=== PATIENT | female | born 1990 | race Caucasian/White ===

== ENCOUNTER 2019-11-14 13:33 | Emergency (ER) | payer SELFPAY ==
--- NOTE | 2019-11-14 14:19 | ER ---
Nurse's Notes [facility] Name: Natalia Dawkins Age: 29 yrs Sex: Female : 1990 Arrival Date: 11/14/2019 Time: 13:35 Bed 17 Private MD: Diagnosis: Suicidal ideations;Major depressive disorder, recurrent-homeless, resoursless;Alcohol abuse with intoxication;Cocaine abuse Presentation: 11/13 13:39 Chief complaint: Patient states: "I have been out of my antidepressants for a week now. ca1 There are 7 of them. I have suicidal thoughts right now". Pt is crying in triage states, "haven't slept in a week, can't hold down anything down, I have been vomiting too". Coronavirus screen: Proceed with normal triage. Patient denies a cough. Patient denies shortness of breath or difficulty breathing. Patient denies measured and/or subjective temperature greater than 100.4F prior to today's visit. Patient denies travel on a cruise ship or to a country the [facility] currently lists as an affected area. Patient denies contact with known and/or suspected case of COVID-19. Ebola Screen: Patient negative for fever greater than or equal to 101.5 degrees Fahrenheit, and additional compatible Ebola Virus Disease symptoms Patient denies exposure to infectious person. Patient denies travel to an Ebola-affected area in the 21 days before illness onset. No symptoms or risks identified at this time. Initial Sepsis Screen: Does the patient meet any 2 criteria? No. Patient's initial sepsis screen is negative. Does the patient have a suspected source of infection? No. Patient's initial sepsis screen is negative. Risk Assessment: Do you want to hurt yourself or someone else? Patient reports desire/thoughts of hurting themselves or someone else. Provider notified. Onset of symptoms was November 14, 2019. 13:39 Method Of Arrival: Ambulatory ca1 13:39 Acuity: PILLO 2 ca1 OBSTETRIC ANAESTHETIST: 13:45 LMP 11/12/2019 ca1 Historical: - Allergies: 13:45 No Known Allergies; ca1 - PMHx: 13:45 Depression; Anxiety; ca1 - PSHx: 13:45 None; ca1 - Immunization history:: Adult Immunizations up to date. - Social history:: Smoking status: Patient reports the use of cigarette tobacco products, smokes one-half pack cigarettes per day. - Family history:: not pertinent. Screenin:23 Abuse screen: PT DOES NOT ANSWER QUESTIONS. Nutritional screening: No deficits noted. ls4 Tuberculosis screening: No symptoms or risk factors identified. Fall Risk None identified. Assessment: 14:02 General: Appears distressed, unkempt, Behavior is combative, restless, uncooperative, ls4 Reports LOST HER MEDICATIONS AND HAS NO WHERE TO LIVE. STATES SHE LEFT [facility] AGAINST THEIR ADVICE BECAUSE SHE STATES THEY TREATED HER LIKE SHE WAS IN RESIDENTIAL. PT STATES THEY WERE DISRESPECTFUL AND THEY DROPPED HER OFF AT [facility] WHO SHE SAID AT FIRST WAS NOT EXCEPTING NEW RESIDENTS AND THEN SHE STATED THEY ARE CLOSED. PT WAS UNABLE TO TELL US WHAT SUBSTANCE SHE WAS IN REHAB FOR. EVENTUALLY, SHE STATED ALCOHOL AND STUFF. PT THEN BEGAN SCREAMING AND CURSING AT THE TOP OF HER LUNGS TO DR GASTELUM WHO WAS ASSESSING HER NEEDS IN ORDER TO ARRANGE PROPER CARE. PT STATES SHE HAS NO FAMILY AND NO FRIENDS. PT STATES SHE IS WAITING FOR HOUSING IN [place]. PT ALSO STATES THAT SHE WAS GETTING HER MEDICATIONS FROM [facility]. Pain: Denies pain. Neuro: Level of Consciousness is awake, alert, obeys commands, Oriented to person, place, time, situation. Cardiovascular: Denies chest pain. Respiratory: Airway is patent Respiratory effort is even, unlabored, Respiratory pattern is regular. 19:00 Reassessment:. rv 19:00 General: Appears comfortable, Behavior is calm, cooperative. Pain: Denies pain. Neuro: rv Level of Consciousness is awake, alert, obeys commands, Oriented to person, place, time, situation. 20:09 Reassessment: IV ON LEFT AC INFILTRATED, DISCONTINUED. rv 11/14 04:15 Reassessment: Patient appears in no apparent distress at this time. Patient is alert, sg oriented x 3, equal unlabored respirations, skin warm/dry/pink. report received from CLARISSE Maki. 04:45 Reassessment: pt appears calm, quiet. Requesting medication for anxiety at this time, sg pt states "can feel it getting worse." notified, orders received for PO ativan, pt medicated see [facility]. continuing to wait for acceptance at a receiving facility at this time. 05:00 Reassessment: Patient appears in no apparent distress at this time. Patient is alert, sg oriented x 3, equal unlabored respirations, skin warm/dry/pink. 06:00 Reassessment: Patient appears in no apparent distress at this time. Patient and/or sg family updated on plan of care and expected duration. Pain level reassessed. Patient is alert, oriented x 3, equal unlabored respirations, skin warm/dry/pink. 07:04 General: Appears in no apparent distress. Pt. is resting with eyes closed, respirations rb1 even, unlabored. Sitter at the bedside.. 08:00 Reassessment: Patient appears in no apparent distress at this time. Patient and/or rb1 family updated on plan of care and expected duration. Pain level reassessed. Patient is alert, oriented x 3, equal unlabored respirations, skin warm/dry/pink. 08:50 General: Appears in no apparent distress. comfortable, Behavior is calm, cooperative, sv appropriate for age. Pain: Denies pain. Neuro: Level of Consciousness is awake, alert, obeys commands, Oriented to person, place, time, situation, Moves all extremities. Full function. Respiratory: Respiratory effort is even, unlabored, Respiratory pattern is regular, symmetrical. 09:22 Reassessment: Facetime done with [facility]. sv 10:01 Reassessment: Cele from [facility] recommends inpatient treatment at this time. Pt told sv her that she now has a plan, which would be to take a bunch of pills and kill herself. 11:00 Reassessment: Patient appears in no apparent distress at this time. No changes from sv previously documented assessment. Patient and/or family updated on plan of care and expected duration. Pain level reassessed. Patient is alert, oriented x 3, equal unlabored respirations, skin warm/dry/pink. 12:00 Reassessment: Patient appears in no apparent distress at this time. No changes from sv previously documented assessment. Patient and/or family updated on plan of care and expected duration. Pain level reassessed. Patient is alert, oriented x 3, equal unlabored respirations, skin warm/dry/pink. Pt given lunch tray. 13:00 Reassessment: Patient appears in no apparent distress at this time. No changes from sv previously documented assessment. Patient and/or family updated on plan of care and expected duration. Pain level reassessed. Patient is alert, oriented x 3, equal unlabored respirations, skin warm/dry/pink. 14:30 Reassessment: Patient appears in no apparent distress at this time. No changes from previously documented assessment. Patient and/or family updated on plan of care and expected duration. Pain level reassessed. Patient is alert, oriented x 3, equal unlabored respirations, skin warm/dry/pink. 16:00 Reassessment: Patient appears in no apparent distress at this time. No changes from previously documented assessment. Patient and/or family updated on plan of care and expected duration. Pain level reassessed. Patient is alert, oriented x 3, equal unlabored respirations, skin warm/dry/pink. 17:06 Reassessment: Patient appears in no apparent distress at this time. No changes from previously documented assessment. Patient and/or family updated on plan of care and expected duration. Pain level reassessed. Patient is alert, oriented x 3, equal unlabored respirations, skin warm/dry/pink. Pt given dinner tray. 19:08 General: Appears in no apparent distress. Behavior is calm, cooperative, appropriate wh for age. Pain: Denies pain. Neuro: Level of Consciousness is awake, alert, obeys commands, Oriented to person, place, time, situation, Appropriate for age. Cardiovascular: Capillary refill < 3 seconds. Respiratory: Airway is patent Respiratory effort is even, unlabored, Respiratory pattern is regular, symmetrical. GI: Abdomen is flat, non-distended. : No signs and/or symptoms were reported regarding the genitourinary system. EENT: No signs and/or symptoms were reported regarding the EENT system. Derm: Skin is intact, is healthy with good turgor, Skin is pink, warm \\T\\ dry. normal. Musculoskeletal: Circulation, motion, and sensation intact. 20:30 Reassessment: Patient appears in no apparent distress at this time. No changes from previously documented assessment. Patient and/or family updated on plan of care and expected duration. Pain level reassessed. Patient is alert, oriented x 3, equal unlabored respirations, skin warm/dry/pink. Sitter at bedside. 22:00 Reassessment: Patient appears in no apparent distress at this time. No changes from previously documented assessment. Patient and/or family updated on plan of care and expected duration. Pain level reassessed. Patient is alert, oriented x 3, equal unlabored respirations, skin warm/dry/pink. SItter at bedside. 23:30 Reassessment: Patient appears in no apparent distress at this time. No changes from previously documented assessment. Patient and/or family updated on plan of care and expected duration. Pain level reassessed. Patient is alert, oriented x 3, equal unlabored respirations, skin warm/dry/pink. Pt sleeping well no signs of distress noted. Sitter at bedside. 11/15 01:00 Reassessment: Patient appears in no apparent distress at this time. No changes from previously documented assessment. Patient and/or family updated on plan of care and expected duration. Pain level reassessed. Patient is alert, oriented x 3, equal unlabored respirations, skin warm/dry/pink. Pt sleeping well no signs of distress noted, sitter at bedside. 02:30 Reassessment: Patient appears in no apparent distress at this time. No changes from previously documented assessment. Patient and/or family updated on plan of care and expected duration. Pain level reassessed. Patient is alert, oriented x 3, equal unlabored respirations, skin warm/dry/pink. Pt sleeping well no signs of distress noted, sitter at bedside. 03:41 Reassessment: [facility] on the phone with for a DOC to DOC report, sg awaiting acceptance and a bed approval at this time, pt stated understanding. 05:00 Reassessment: Patient appears in no apparent distress at this time. No changes from previously documented assessment. Patient and/or family updated on plan of care and expected duration. Pain level reassessed. Patient is alert, oriented x 3, equal unlabored respirations, skin warm/dry/pink. report given to [facility]. 05:25 Reassessment: Pt belongings returned by Security. Psych: 11/13 14:02 Interventions: Removed personal items and placed in bag. Patient placed in hospital tw2 gown. Belonging list filled out. Suicide Risk Assessment: Sad Person Scale: Sex of patient: Female: Score 0 points. Age of patient: Score 1 point if patient 15-34. Depression: Score 1 point if signs of depression are present. Previous Attempt: Score 0 point if patient has not previously attempted suicide. Substance Abuse: Score 1 point if patient abuses alcohol or drugs. Rational Thinking: Score 1 point if patient is lacking rational thinking. Social Support: Score 1 point if social support is lacking and/or unavailable. Organized Plan: Score 0 if patient did not have an organized plan in place. Relationship: Score 1 point if patient is , , , or for a single male Chronic Sickness: Score 1 point if patient has illness, chronic, debilitating, or severe. TOTAL POINTS: If total points are 7-10, the proposed clinical action is to hospitalize or commit. Implement suicide precautions. 14:10 Subjective: Patient's mood is irritable. Objective: Patient is uncooperative, tw2 belligerent, defensive, irritable. Safety Checks: Personal items have been removed. Door is open. sitter remains with pt throughout shift. Patient uses cocaine. Commitment: Patient will be a voluntary commitment. Vital Signs: 13:39 BP 141 / 93; Pulse 106; Resp 19 S; Temp 98.6(TE); Pulse Ox 98% on R/A; Weight 99.79 kg ca1 (R); Height 5 ft. 1 in. (154.94 cm) (M); 19:00 BP 138 / 86; Pulse 91; Resp 18; Temp 98.5; Pulse Ox 99% on R/A; Pain 0/10; rv 11/14 04:15 BP 127 / 99 LA Sitting (auto/lg); Pulse 86 MON; Resp 16 S; Temp 98.2(TE); Pulse Ox 98% ds4 on R/A; Pain 0/10; 12:17 BP 118 / 80; Pulse 97; Resp 18; Pulse Ox 98% on R/A; tm3 17:07 BP 122 / 82; Pulse 92; Resp 16; Pulse Ox 99% ; sv 11/15 05:00 BP 103 / 83; Pulse 83; Resp 18; Temp 97.8; Pulse Ox 98% ; wh 11/13 13:39 Body Mass Index 41.57 (99.79 kg, 154.94 cm) ca1 ED Course: 11/13 13:35 Patient arrived in ED. ag5 13:44 Triage completed. ca1 13:45 Arm band placed on right wrist. ca1 13:48 Tony Gastelum MD is Attending Physician. darin 13:56 Lin Jalloh RN is Primary Nurse. ls4 14:23 Patient has correct armband on for positive identification. Placed in gown. Bed in low ls4 position. Call light in reach. Side rails up X 1. Valuables Locked in safe. See valuables checklist. PT ON SUICIDE PRECAUTIONS. BELONGINGS REMOVED. . Security at bedside. CHRISTA HARTMAN CALLED. PT LEFT ROOM AND WAS FOLLOWED BY SECURITY TO FAST TRACK ROOMS. NURSE [employer] TEACHER ARRIVED AND WAS ABLE TO BRING PT BACK TO ROOM. 14:55 Initial lab(s) drawn, by me, sent to lab. Inserted saline lock: 22 gauge in left lt1 antecubital area, using aseptic technique. 18:20 Diet: Patient given a regular meal tray. mh5 19:00 No apparent distress. Resting quietly. transfer approval from receiving facility. rv Patient requests food. Patient requests liquids. Patient requests rest room assistance. Safety Checks: The door is open or patient has been placed in a hallway bed/chair. There are no family/friend visitors at this time Sitter present at this time. 19:00 Noise minimized. Visitors limited. Lights dimmed. Warm blanket given. Pillow given. rv Diet tray given. 20:09 Inserted saline lock: 20 gauge in right antecubital area, using aseptic technique. rv 20:50 called [facility] was at capacity for psych beds. ar5 20:55 faxed pt. clinical's to [facility]. ar5 11/14 04:25 Primary Nurse role handed off by Lin Jalloh RN sg 04:25 Sebastian Valladares, RN is Primary Nurse. sg 04:40 PT given sandwich, potato chips, drink. ds4 07:00 Report given to CLARISSE DEL TORO. sg 08:08 Diet tray given. em1 08:34 contacted [facility] to have pt evaluated. bd 08:36 contacted [facility], talked to jasmina, pt still on wait list, discharges are bd not expected today. 08:49 faxed chart to [facility]. bd 08:50 Primary Nurse role handed off by Sebastian Valladares, CLARISSE sv 08:50 Soo Oneill, CLARISSE is Primary Nurse. sv 16:45 Diet tray given. em1 17:09 talked to Lenin at [facility], chart is still under review. bd 17:10 talked to Jasmina at [facility], pt is still on waiting list, still no discharges, none bd expected tonight. 17:11 contacted [facility], behavioral, and [facility], no beds at this time. bd 18:04 Primary Nurse role handed off by Soo Oneill RN 19:04 Merry Corbett is Primary Nurse. 11/15 01:05 [employer] given with chips and drink. ds4 05:21 No provider procedures requiring assistance completed. IV discontinued, intact, bleeding controlled, No redness/swelling at site. Administered Medications: 11/13 13:55 Drug: Ativan 1 mg Route: PO; tw2 21:56 Follow up: Response: No adverse reaction rv 15:22 Drug: NS 0.9% 1000 ml Route: IV; Rate: 1 bolus; Site: left antecubital; tw2 21:56 Follow up: IV Status: Completed infusion; IV Intake: 1000ml rv 15:23 Drug: Ativan 1 mg Route: IVP; Site: left antecubital; tw2 21:56 Follow up: Response: No adverse reaction rv 21:55 Drug: Ativan 1 mg Route: IVP; Site: right antecubital; 11/14 00:05 Follow up: Response: No adverse reaction; RASS: Light sedation (-2) rv 04:52 Drug: Ativan 1 mg Route: PO; sg 19:09 Follow up: Response: No adverse reaction; RASS: Alert and Calm (0) 22:25 Drug: Ativan 1 mg Route: PO; 11/15 05:21 Follow up: Response: No adverse reaction; RASS: Alert and Calm (0) Intake: 11/13 21:56 IV: 1000ml; Total: 1000ml. rv 11/14 12:00 PO: 200ml (Water); Total: 1200ml. sv 17:08 PO: 200ml (Water); Total: 1400ml. Outcome: 11/13 14:19 ER care complete, transfer ordered by . [facility] 11/15 05:22 Transferred by ground EMS to other acute care facility: [facility]. Transfer form completed. X-rays sent w/ patient. Note: report given to [facility] Condition: stable Instructed on the need for transfer. 05:26 Patient left the ED. Signatures: Sandra Ch bd Maledarin, Malik tm3 Soo Oneill RN RN Sebastian Valladares RN RN Tony Gastelum MD MD cha Martinez, Kory em1 Ramsey Mak ds4 Griselda Whitney, RN RN rb1 Marianela Martinez RN RN tw2 Amparo Dow [facility] Merry Corbett Vini Lam RN RN rv Lin Jalloh RN RN ls4 Benjy, Nithya [facility] Julia Young RN RN ca1 Gennaro, Oma ag5 Nagy, Claudia lt1 Corrections: (The following items were deleted from the chart) 11/13 13:46 13:39 Pulse 106bpm; Resp 19bpm; Spontaneous; Pulse Ox 98% RA; Temp 98.6F Temporal; ca1 99.79 kg Reported; Height 5 ft. 1 in. Measured; BMI: 41.5; ca1 21:55 20:50 called [facility]T was at capacity for psych beds [place] [id number] 21:55 20:55 faxed pt. clinical's to psych facilities \\T [place] [id number] 11/14 17:07 12:00 Reassessment: Patient appears in no apparent distress at this time. No changes sv from previously documented assessment. Patient and/or family updated on plan of care and expected duration. Pain level reassessed. Patient is alert, oriented x 3, equal unlabored respirations, skin warm/dry/pink. sv
--- NOTE | 2019-11-14 14:20 | EDPHYS ---
Physician Documentation [facility] Name: Natalia Dawkins Age: 29 yrs Sex: Female : 1990 Arrival Date: 11/14/2019 Time: 13:35 Bed 17 Private MD: ED Physician Tony Gastelum HPI: 11/13 14:10 This 29 yrs old Female presents to ER via Ambulatory with complaints of darin Suicidal Ideation, Needs Medication. 14:10 The patient presents to the emergency department with depression, a history of [facility] substance abuse, Type: alcohol and various drugs. Onset: The symptoms/episode began/occurred 1 week(s) ago. Past psychiatric history: Prior diagnosis: depression, Psychiatric medications include: many and not able to recall. Associated signs and symptoms: The patient has no apparent associated signs or symptoms. Severity of symptoms: At their worst the symptoms were mild moderate in the emergency department the symptoms are unchanged. The patient has experienced similar episodes in the past, multiple times. 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 - Social history:: Smoking status: Patient reports the use of cigarette tobacco products, smokes one-half pack cigarettes per day. - Family history:: not pertinent. ROS: 14:10 Constitutional: Negative for fever, chills, and weight loss, Eyes: Negative for injury, darin pain, redness, and discharge, ENT: Negative for injury, pain, and discharge, Neck: Negative for injury, pain, and swelling, Cardiovascular: Negative for chest pain, palpitations, and edema, Respiratory: Negative for shortness of breath, cough, wheezing, and pleuritic chest pain, Abdomen/GI: Negative for abdominal pain, nausea, vomiting, diarrhea, and constipation, Back: Negative for injury and pain, : Negative for injury, bleeding, discharge, and swelling, MS/Extremity: Negative for injury and deformity, Skin: Negative for injury, rash, and discoloration, Neuro: Negative for headache, weakness, numbness, tingling, and seizure, Allergy/Immunology: Negative for hives, rash, and allergies, Endocrine: Negative for neck swelling, polydipsia, polyuria, polyphagia, and marked weight changes, Hematologic/Lymphatic: Negative for swollen nodes, abnormal bleeding, and unusual bruising. 14:10 Psych: Positive for depression, suicidal ideation. Exam: 14:10 Constitutional: This is a well developed, well nourished patient who is awake, alert, darin and in no acute distress. Head/Face: Normocephalic, atraumatic. Eyes: Pupils equal round and reactive to light, extra-ocular motions intact. Lids and lashes normal. Conjunctiva and sclera are non-icteric and not injected. Cornea within normal limits. Periorbital areas with no swelling, redness, or edema. ENT: Nares patent. No nasal discharge, no septal abnormalities noted. Tympanic membranes are normal and external auditory canals are clear. Oropharynx with no redness, swelling, or masses, exudates, or evidence of obstruction, uvula midline. Mucous membranes moist. Neck: Trachea midline, no thyromegaly or masses palpated, and no cervical lymphadenopathy. Supple, full range of motion without nuchal rigidity, or vertebral point tenderness. No Meningismus. Chest/axilla: Normal chest wall appearance and motion. Nontender with no deformity. No lesions are appreciated. Cardiovascular: Regular rate and rhythm with a normal S1 and S2. No gallops, murmurs, or rubs. Normal PMI, no JVD. No pulse deficits. Respiratory: Lungs have equal breath sounds bilaterally, clear to auscultation and percussion. No rales, rhonchi or wheezes noted. No increased work of breathing, no retractions or nasal flaring. Abdomen/GI: Soft, non-tender, with normal bowel sounds. No distension or tympany. No guarding or rebound. No evidence of tenderness throughout. Back: No spinal tenderness. No costovertebral tenderness. Full range of motion. Skin: Warm, dry with normal turgor. Normal color with no rashes, no lesions, and no evidence of cellulitis. MS/ Extremity: Pulses equal, no cyanosis. Neurovascular intact. Full, normal range of motion. Neuro: Awake and alert, GCS 15, oriented to person, place, time, and situation. Cranial nerves II-XII grossly intact. Motor strength 5/5 in all extremities. Sensory grossly intact. Cerebellar exam normal. Normal gait. 14:10 Psych: Behavior/mood is aggressive, angry, Affect is laible. Oriented to person, place, time, Not oriented to person place, time, Patient has no thoughts/intents to harm self or others. Judgement / Insight is normal. Delusions/hallucinations are not present. 15:33 ECG was reviewed by the Attending Physician. darin Vital Signs: 13:39 BP 141 / 93; Pulse 106; Resp 19 S; Temp 98.6(TE); Pulse Ox 98% on R/A; Weight 99.79 kg ca1 (R); Height 5 ft. 1 in. (154.94 cm) (M); 19:00 BP 138 / 86; Pulse 91; Resp 18; Temp 98.5; Pulse Ox 99% on R/A; Pain 0/10; rv 11/14 04:15 BP 127 / 99 LA Sitting (auto/lg); Pulse 86 MON; Resp 16 S; Temp 98.2(TE); Pulse Ox 98% ds4 on R/A; Pain 0/10; 12:17 BP 118 / 80; Pulse 97; Resp 18; Pulse Ox 98% on R/A; tm3 17:07 BP 122 / 82; Pulse 92; Resp 16; Pulse Ox 99% ; sv 11/15 05:00 BP 103 / 83; Pulse 83; Resp 18; Temp 97.8; Pulse Ox 98% ; wh 11/13 13:39 Body Mass Index 41.57 (99.79 kg, 154.94 cm) ca1 MDM: 11/13 13:48 Patient medically screened. darin 14:16 Data reviewed: vital signs, nurses notes, lab test result(s), EKG, radiologic studies. darin 14:21 Differential diagnosis: drug withdrawal. acute psychotic break, depression, psychosis darin secondary to non-compliance. Data interpreted: monitor technician: rate is 106 beats/min, rhythm is normal sinus rhythm, Pulse oximetry: on room air is 98 %. Test interpretation: by ED physician or midlevel provider: ECG. Counseling: I had a detailed discussion with the patient and/or guardian regarding: the historical points, exam findings, and any diagnostic results supporting the discharge/admit diagnosis, lab results, the need to transfer to another facility. 11/14 03:33 ED course: Pt sleeping comfortably, no meds required, awaiting transfer. . rn 11/15 03:33 ED course: Pt accepted for transfer after doc-to-doc performed \T\ 0333.. rn 11/13 13:49 Order name: Acetaminophen; Complete Time: 16:20 [facility] 11/13 13:49 Order name: Basic Metabolic Panel; Complete Time: 16:20 [facility] 11/13 13:49 Order name: CBC with Diff; Complete Time: 16:20 [facility] 11/13 13:49 Order name: ETOH Level; Complete Time: 16:20 [facility] 11/13 13:49 Order name: Hepatic Function; Complete Time: 16:20 [facility] 11/13 13:49 Order name: PT-INR; Complete Time: 16:20 [facility] 11/13 13:49 Order name: Ptt, Activated; Complete Time: 16:20 [facility] 11/13 13:49 Order name: Salicylate; Complete Time: 16:20 [facility] 11/13 13:49 Order name: Urine Drug Screen; Complete Time: 16:20 [facility] 11/13 15:10 Order name: Urine Dipstick--Ancillary (enter results); Complete Time: 16:20 [facility] [place] 11/13 15:10 Order name: Urine --Ancillary (enter results); Complete Time: 16:20 [facility] [place] 11/13 13:49 Order name: Urine Test (obtain specimen); Complete Time: 15:08 [facility] 11/13 13:49 Order name: EKG; Complete Time: 13:50 [facility] 11/13 13:49 Order name: EKG - Nurse/Tech; Complete Time: 19:07 [facility] 11/13 13:49 Order name: IV Saline Lock; Complete Time: 13:57 [facility] 11/13 13:49 Order name: Labs collected and sent; Complete Time: 13:57 [facility] 11/13 13:49 Order name: Urine Dipstick-Ancillary (obtain specimen); Complete Time: 13:57 [facility] 11/13 16:22 Order name: PO challenge: juice; Complete Time: 19:07 [facility] 11/13 16:22 Order name: Diet Regular; Complete Time: 16:22 [facility] 11/13 17:12 Order name: Diet Finger Food; Complete Time: 17:13 [facility] 11/14 07:45 Order name: Diet Finger Food; Complete Time: 07:46 bd 11/14 12:15 Order name: Diet Finger Food; Complete Time: 12:15 11/14 16:03 Order name: Diet Finger Food; Complete Time: 16:03 bd EC/11 15:33 Rate is 104 beats/min. Rhythm is regular. QRS Mccarr is Normal. VA interval is normal. darin QRS interval is normal. QT interval is normal. No Q waves. T waves are Normal. No ST changes noted. Clinical impression: Sinus tachycardia. Interpreted by me. Reviewed by me. Administered Medications: 13:55 Drug: Ativan 1 mg Route: PO; tw2 21:56 Follow up: Response: No adverse reaction rv 15:22 Drug: NS 0.9% 1000 ml Route: IV; Rate: 1 bolus; Site: left antecubital; tw2 21:56 Follow up: IV Status: Completed infusion; IV Intake: 1000ml rv 15:23 Drug: Ativan 1 mg Route: IVP; Site: left antecubital; tw2 21:56 Follow up: Response: No adverse reaction rv 21:55 Drug: Ativan 1 mg Route: IVP; Site: right antecubital; 11/14 00:05 Follow up: Response: No adverse reaction; RASS: Light sedation (-2) 04:52 Drug: Ativan 1 mg Route: PO; 19:09 Follow up: Response: No adverse reaction; RASS: Alert and Calm (0) 22:25 Drug: Ativan 1 mg Route: PO; 11/15 05:21 Follow up: Response: No adverse reaction; RASS: Alert and Calm (0) Disposition: 11/14/19 14:19 Transfer ordered to [facility]. Diagnosis are Suicidal ideations, Major depressive disorder, recurrent - homeless, resoursless, Alcohol abuse with intoxication, Cocaine abuse. - Reason for transfer: Higher level of care. - Accepting physician is to [facility]. - Condition is Fair. - Problem is new. - Symptoms have improved. Signatures: Dispatcher [employer] EDMS Sebastian Valladares RN RN sg Anderson, Corey, MD MD cha Nieto, Roman, MD MD rn Wise, Tara, RN RN tw2 Merry Corbett Vini Lam RN RN rv Julia Young RN RN ca1 Corrections: (The following items were deleted from the chart) 11/13 16:20 14:19 11/14/2019 14:19 Transfer ordered to [facility]. Diagnosis is Suicidal darin ideations; Major depressive disorder, recurrent - homeless, resoursless. Reason for transfer: Higher level of care. Accepting physician is to [facility]. Condition is Fair. Problem is new. Symptoms have improved. [facility] 11/15 05:26 11/13 16:20 11/14/2019 14:19 Transfer ordered to [facility]. Diagnosis is wh Suicidal ideations; Major depressive disorder, recurrent - homeless, resoursless; Alcohol abuse with intoxication; Cocaine abuse. Reason for transfer: Higher level of care. Accepting physician is to [facility]. Condition is Fair. Problem is new. Symptoms have improved. darin
[2019-11-14] MEDS ORDERED: LORAZEPAM 1 MG TABLET ONE (14:41)
[2019-11-14 15:13] LABS: Protime INR 0.97
[2019-11-14 15:16] LABS: Absolute Lymphocytes (CBC) 3.8 K/uL (0.7-4.9); Lymphocytes % 37.6 % (15.3-44.8); MPV 9.6 fL (7.6-11.3); RBC Red Blood Cell Count 4.75 M/uL (3.86-4.86)
[2019-11-14 15:23] LABS: Urine Blood 3+ (NEG); Urine Glucose NEGATIVE (NEG); Urine Protein NEGATIVE (NEG); Urine Specific Gravity >1.030 (1.005-1.030); Urine pH 5.5 (5.0-7.0)
[2019-11-14] MEDS ORDERED: LORazepam 2 MG/ML VIAL ONE ×2 (15:23→21:27)
[2019-11-14] MEDS ORDERED: NA CHLORIDE 0.9% 1,000 ML ONE (15:23)
[2019-11-14 15:41] LABS: ALT/SGPT 43 U/L (12-78); AST/SGOT 25 U/L (15-37); Albumin 3.8 g/dL (3.4-5.0); Alkaline Phosphatase 113 U/L (45-117); BUN Blood Urea Nitrogen 11 mg/dL (7-18); Bicarbonate 26 mmol/L (21-32); Bilirubin Direct < 0.1 mg/dL (0-0.2); Bilirubin Total 0.2 mg/dL (0.2-1.0); Glucose Level 99 mg/dL (74-106); Potassium 3.4 mmol/L (3.5-5.1); Protein, Total 8.2 g/dL (6.4-8.2); Sodium Level 138 mmol/L (136-145)
[2019-11-14 15:42] LABS: Barbiturates NEGATIVE (NEGATIVE); Benzodiazepines NEGATIVE (NEGATIVE); Cocaine POSITIVE (NEGATIVE); METHAMPHETAM NEGATIVE (NEGATIVE); Methadone NEGATIVE (NEGATIVE); Opiates NEGATIVE (NEGATIVE); Phencyclidine NEGATIVE (NEGATIVE); THC Cannibis NEGATIVE (NEGATIVE)
--- NOTE | 2019-11-14 18:44 | EKG ---
Test Date: 2019-11-14 Test Time: 15:30:32 Mill Roll Operator: LAMART MEASUREMENT RESULTS: Intervals: Rate: 104 WA: 152 QRSD: 88 QT: 356 QTc: 468 [place]: P: 49 WA: 152 QRS: 43 T: 44 INTERPRETIVE STATEMENTS: Sinus tachycardia Otherwise normal ECG No previous ECG available for comparison Electronically Signed On 11-14-19 18:43:49 CDT by Rich Cherry
[2019-11-15] MEDS ORDERED: LORAZEPAM 1 MG TABLET ONE ×2 (04:56→22:24)
[2019-11-16 06:04] VITALS: BP 103/83; TEMP 97.8; O2SAT 98
== END 2019-11-16 05:26 | disposition short-term general hospital (02) ==
LOC: ER 13:33
DX: F33.9 Major depressive disorder, recurrent, unspecified (principal); F10.129 Alcohol abuse with intoxication, unspecified; F14.10 Cocaine abuse, uncomplicated; Z59.0 Homelessness; F17.210 Nicotine dependence, cigarettes, uncomplicated
CPT/HCPCS: 36415; 80048; 80076; 80307; 80320; 80329; 81003; 81025; 85025; 85610; 85730; 93005; 99285; J7030